=== PATIENT | male | born 1980 | race Caucasian/White ===

== ENCOUNTER 2017-11-28 13:03 | Inpatient (IN) | payer OTHER ==
[2017-11-28 16:11] VITALS: BMI 23.6
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
[2017-11-28] MEDS ORDERED: chlordiazePOXIDE HCL 25 MG CAPSULE PO PRN (21:09)
[2017-11-28] MEDS ORDERED: P-EPHED 60MG/TRIPROLIDI 2.5MG TABLET PO PRN (21:09)
[2017-11-28] MEDS ORDERED: MAG HYDROX/AL HYDROX/SIMETH 30 ML UNIT-DOSE CUP PO PRN (21:09)
[2017-11-28] MEDS ORDERED: guaiFENesin/D-METHORPHAN HB 10 ML UNIT-DOSE CUPS PO PRN (21:09)
[2017-11-28] MEDS ORDERED: chlordiazePOXIDE HCL 25 MG CAPSULE PO ONE (21:09)
[2017-11-28] MEDS ORDERED: MENTHOL/PHENOL 1 EACH UD MM PRN (21:09)
[2017-11-28] MEDS ORDERED: MAGNESIUM CITRATE 300 ML BOTTLE PO PRN (21:09)
[2017-11-28] MEDS ORDERED: MAGNESIUM HYDROX 2400MG/30ML ORAL SUSPENSION 30 ML CUP PO PRN (21:09)
[2017-11-28] MEDS ORDERED: LOPERAMIDE HCL 2 MG CAPSULE PO PRN (21:09)
[2017-11-28] MEDS ORDERED: cloNIDine HCL 0.1 MG TABLET PO PRN (21:18)
[2017-11-28] MEDS: THIAMINE HCL 100 MG TABLET (FP) PO SCH (21:59)
[2017-11-28] MEDS: IBUPROFEN 400 MG TABLET (FP) PO PRN (22:00)
[2017-11-28] MEDS: chlordiazePOXIDE HCL 25 MG CAPSULE PO SCH (22:00)
[2017-11-28] MEDS: GABAPENTIN 100 MG CAPSULE (FP) PO SCH (22:00)
[2017-11-28 22:54] LABS: URINE APPEARANCE CLEAR; URINE BILIRUBIN NEGATIVE (NEGATIVE); URINE BLOOD NEGATIVE (NEGATIVE); URINE COLOR AMBER; URINE GLUCOSE (UA) NEGATIVE (NEGATIVE); URINE KETONE TRACE (NEGATIVE); URINE LEUK ESTERASE NEGATIVE (NEGATIVE); URINE NITRITE NEGATIVE (NEGATIVE)
[2017-11-28 23:09] LABS: URINE PROTEIN 2+ (NEGATIVE)
[2017-11-28 23:12] LABS: URINE MUCUS RARE
[2017-11-29] MEDS: METHOCARBAMOL 500 MG TABLET PO PRN (05:16)
[2017-11-29] MEDS: chlordiazePOXIDE HCL 25 MG CAPSULE PO SCH ×4 (05:17→22:12)
[2017-11-29] MEDS: GABAPENTIN 100 MG CAPSULE (FP) PO SCH ×3 (07:21→22:11)
[2017-11-29 10:04] LABS: HEMATOCRIT 40.8 % (35.4-49); HEMOGLOBIN 13.4 GM/dL (11.7-16.9); MCH 32.5 pg (25.7-33.7); MEAN CELL VOLUME 98.7 fl (80-96); MEAN PLT VOLUME 7.8 fl (7.5-11.1); PLATELET COUNT 78 K/MM3 (134-434); RBC 4.13 M/mm3 (4.00-5.60); RDW 15.6 % (11.9-15.9); WHITE BLOOD COUNT 3.2 K/mm3 (4.0-10.0)
[2017-11-29] MEDS: PRENATAL VITAMINS W/ FOLIC ACID TABLET (FP) PO SCH (10:27)
[2017-11-29] MEDS: IBUPROFEN 400 MG TABLET (FP) PO PRN (10:29)
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
[2017-11-29] MEDS ORDERED: IBUPROFEN 600 MG TABLET (FP) PO PRN (10:59)
[2017-11-29 11:30] LABS: CHLORIDE 99 mmol/L (98-107); POTASSIUM 3.3 mmol/L (3.5-5.1); SODIUM 138 mmol/L (136-145)
[2017-11-29 11:37] LABS: ALBUMIN 3.6 g/dl (3.4-5.0); ALK PHOS 92 U/L (45-117); ANION GAP 11 (8-16); BILIRUBIN,TOTAL 1.8 mg/dL (0.2-1.0); BLOOD UREA NITROGEN 15 mg/dL (7-18); CO2 28 mmol/L (21-32); CREATININE 0.7 mg/dL (0.7-1.3); GLUCOSE,RANDOM 83 mg/dL (74-106); SGOT/AST 82 U/L (15-37); SGPT/ALT 83 U/L (12-78); TOT PROT 7.4 g/dl (6.4-8.2)
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
[2017-11-29] MEDS: THIAMINE HCL 100 MG TABLET (FP) PO SCH (22:11)
[2017-11-30] MEDS: chlordiazePOXIDE HCL 25 MG CAPSULE PO SCH ×3 (05:38→17:59)
[2017-11-30] MEDS: GABAPENTIN 100 MG CAPSULE (FP) PO SCH ×3 (05:38→22:09)
--- NOTE | 2017-11-30 07:54 | EKG ---
Test Reason : Blood Pressure : / mmHG Vent. Rate : 070 BPM Atrial Rate : 070 BPM P-R Int : 150 ms QRS Dur : 086 ms QT Int : 424 ms P-R-T Axes : 056 069 038 degrees QTc Int : 457 ms NORMAL SINUS RHYTHM WITH SINUS ARRHYTHMIA NORMAL ECG NO PREVIOUS ECGS AVAILABLE Confirmed by WILDA VIDAL MD ([id number]) on 11/30/2017 7:54:04 AM Referred By: Confirmed By:WILDA VIDAL MD
[2017-11-30] MEDS: PRENATAL VITAMINS W/ FOLIC ACID TABLET (FP) PO SCH (10:21)
[2017-11-30] MEDS: METHOCARBAMOL 500 MG TABLET PO PRN ×2 (10:21→18:03)
--- NOTE | 2017-11-30 12:15 | PN ---
[facility] CIWA - CIWA Score Nausea/Vomitin-No Nausea/No Vomiting Muscle Tremors: 4-Moderate,w/Arms Extend Anxiety: 4-Mod. Anxious/Guarded Agitation: 4-Moderately Restless Paroxysmal Sweats: 1-Minimal Palms Moist Orientation: 0-Oriented Tacttile Disturbances: 3-Moderate Itch/Numb/Burn Auditory Disturbances: 0-None Visual Disturbances: 0-None Headache: 0-None Present CIWA-Ar Total Score: 16 BHS Progress Note (SOAP) Subjective: ANXIETY,SWEATS,TREMORS,FATIGUE,"WOBBLY FEELING". Objective: 11/30/17 12:14 Vital Signs Temperature 96.0 F L 11/30/17 09:53 Pulse Rate 101 H 11/30/17 09:53 Respiratory Rate 20 11/30/17 09:53 Blood Pressure 128/81 11/30/17 09:53 O2 Sat by Pulse Oximetry (%) Laboratory Last Values WBC 3.2 K/mm3 (4.0-10.0) L 11/29/17 07:10 RBC 4.13 M/mm3 (4.00-5.60) 11/29/17 07:10 Hgb 13.4 GM/dL (11.7-16.9) 11/29/17 07:10 Hct 40.8 % (35.4-49) 11/29/17 07:10 MCV 98.7 fl (80-96) H 11/29/17 07:10 MCH 32.5 pg (25.7-33.7) 11/29/17 07:10 MCHC 33.0 g/dl (32.0-35.9) 11/29/17 07:10 RDW 15.6 % (11.9-15.9) 11/29/17 07:10 Plt Count 78 K/MM3 (134-434) L 11/29/17 07:10 MPV 7.8 fl (7.5-11.1) 11/29/17 07:10 Sodium 138 mmol/L (136-145) 11/29/17 07:10 Potassium 3.3 mmol/L (3.5-5.1) L 11/29/17 07:10 Chloride 99 mmol/L (98-107) 11/29/17 07:10 Carbon Dioxide 28 mmol/L (21-32) 11/29/17 07:10 Anion Gap 11 (8-16) 11/29/17 07:10 BUN 15 mg/dL (7-18) 11/29/17 07:10 Creatinine 0.7 mg/dL (0.7-1.3) 11/29/17 07:10 Creat Clearance w eGFR > 60 (>60) 11/29/17 07:10 Random Glucose 83 mg/dL (74-106) 11/29/17 07:10 Calcium 9.0 mg/dL (8.5-10.1) 11/29/17 07:10 Total Bilirubin 1.8 mg/dL (0.2-1.0) H 11/29/17 07:10 AST 82 U/L (15-37) H 11/29/17 07:10 ALT 83 U/L (12-78) H 11/29/17 07:10 Alkaline Phosphatase 92 U/L (45-117) 11/29/17 07:10 Total Protein 7.4 g/dl (6.4-8.2) 11/29/17 07:10 Albumin 3.6 g/dl (3.4-5.0) 11/29/17 07:10 Urine Color Daisy 11/28/17 22:40 Urine Appearance Clear 11/28/17 22:40 Urine pH 6.0 (5.0-8.0) 11/28/17 22:40 Ur Specific [place] 1.020 (1.001-1.035) 11/28/17 22:40 Urine Protein 2+ (NEGATIVE) H 11/28/17 22:40 Urine Glucose (UA) Negative (NEGATIVE) 11/28/17 22:40 Urine Ketones Trace (NEGATIVE) H 11/28/17 22:40 Urine Blood Negative (NEGATIVE) 11/28/17 22:40 Urine Nitrite Negative (NEGATIVE) 11/28/17 22:40 Urine Bilirubin Negative (NEGATIVE) 11/28/17 22:40 Urine Urobilinogen 2.0 mg/dL (0.2-1.0) 11/28/17 22:40 Ur Leukocyte Esterase Negative (NEGATIVE) 11/28/17 22:40 Urine WBC (Auto) 1 /hpf (3-5) 11/28/17 22:40 Urine RBC (Auto) <1 /hpf (0-3) 11/28/17 22:40 Urine Mucus Rare 11/28/17 22:40 RPR Titer Nonreactive (NONREACTIVE) 11/29/17 07:10 K+ =3.3 Assessment: 11/30/17 12:15 WITHDRAWAL SX HYPOKALEMIA Plan: CONTINUE DETOX
[2017-11-30] MEDS ORDERED: POTASSIUM CHLORIDE ORAL LIQUID 20 MEQ/15 ML PO ONE ×2 (12:33→15:20)
[2017-11-30] MEDS: THIAMINE HCL 100 MG TABLET (FP) PO SCH (22:08)
[2017-11-30] MEDS: chlordiazePOXIDE 5 MG CAPSULE PO SCH (22:08)
[2017-11-30] MEDS: POTASSIUM CHLORIDE ORAL LIQUID 20 MEQ/15 ML PO SCH (22:09)
[2017-12-01] MEDS: GABAPENTIN 100 MG CAPSULE (FP) PO SCH ×3 (05:31→22:13)
[2017-12-01] MEDS: chlordiazePOXIDE 5 MG CAPSULE PO SCH ×3 (05:31→17:30)
[2017-12-01] MEDS: PRENATAL VITAMINS W/ FOLIC ACID TABLET (FP) PO SCH (10:33)
[2017-12-01] MEDS: POTASSIUM CHLORIDE ORAL LIQUID 20 MEQ/15 ML PO SCH ×2 (10:33→22:13)
[2017-12-01] MEDS: METHOCARBAMOL 500 MG TABLET PO SCH ×3 (10:34→22:13)
--- NOTE | 2017-12-01 10:36 | PN ---
BHS Progress Note (SOAP) Subjective: ANXIETY,IRRITABILITY,TREMORS, SWEATS, RIB PAIN-S/P TRUAMA, DRY EYES. Objective: 12/01/17 10:35 Vital Signs Temperature 98.4 F 12/01/17 09:57 Pulse Rate 90 12/01/17 09:57 Respiratory Rate 18 12/01/17 09:57 Blood Pressure 108/75 12/01/17 09:57 O2 Sat by Pulse Oximetry (%) Laboratory Last Values WBC 3.2 K/mm3 (4.0-10.0) L 11/29/17 07:10 RBC 4.13 M/mm3 (4.00-5.60) 11/29/17 07:10 Hgb 13.4 GM/dL (11.7-16.9) 11/29/17 07:10 Hct 40.8 % (35.4-49) 11/29/17 07:10 MCV 98.7 fl (80-96) H 11/29/17 07:10 MCH 32.5 pg (25.7-33.7) 11/29/17 07:10 MCHC 33.0 g/dl (32.0-35.9) 11/29/17 07:10 RDW 15.6 % (11.9-15.9) 11/29/17 07:10 Plt Count 78 K/MM3 (134-434) L 11/29/17 07:10 MPV 7.8 fl (7.5-11.1) 11/29/17 07:10 Sodium 138 mmol/L (136-145) 11/29/17 07:10 Potassium 3.3 mmol/L (3.5-5.1) L 11/29/17 07:10 Chloride 99 mmol/L (98-107) 11/29/17 07:10 Carbon Dioxide 28 mmol/L (21-32) 11/29/17 07:10 Anion Gap 11 (8-16) 11/29/17 07:10 BUN 15 mg/dL (7-18) 11/29/17 07:10 Creatinine 0.7 mg/dL (0.7-1.3) 11/29/17 07:10 Creat Clearance w eGFR > 60 (>60) 11/29/17 07:10 Random Glucose 83 mg/dL (74-106) 11/29/17 07:10 Calcium 9.0 mg/dL (8.5-10.1) 11/29/17 07:10 Total Bilirubin 1.8 mg/dL (0.2-1.0) H 11/29/17 07:10 AST 82 U/L (15-37) H 11/29/17 07:10 ALT 83 U/L (12-78) H 11/29/17 07:10 Alkaline Phosphatase 92 U/L (45-117) 11/29/17 07:10 Total Protein 7.4 g/dl (6.4-8.2) 11/29/17 07:10 Albumin 3.6 g/dl (3.4-5.0) 11/29/17 07:10 Urine Color Daisy 11/28/17 22:40 Urine Appearance Clear 11/28/17 22:40 Urine pH 6.0 (5.0-8.0) 11/28/17 22:40 Ur Specific [place] 1.020 (1.001-1.035) 11/28/17 22:40 Urine Protein 2+ (NEGATIVE) H 11/28/17 22:40 Urine Glucose (UA) Negative (NEGATIVE) 11/28/17 22:40 Urine Ketones Trace (NEGATIVE) H 11/28/17 22:40 Urine Blood Negative (NEGATIVE) 11/28/17 22:40 Urine Nitrite Negative (NEGATIVE) 11/28/17 22:40 Urine Bilirubin Negative (NEGATIVE) 11/28/17 22:40 Urine Urobilinogen 2.0 mg/dL (0.2-1.0) 11/28/17 22:40 Ur Leukocyte Esterase Negative (NEGATIVE) 11/28/17 22:40 Urine WBC (Auto) 1 /hpf (3-5) 11/28/17 22:40 Urine RBC (Auto) <1 /hpf (0-3) 11/28/17 22:40 Urine Mucus Rare 11/28/17 22:40 RPR Titer Nonreactive (NONREACTIVE) 11/29/17 07:10 Assessment: 12/01/17 10:35 WITHDRAWAL SX Plan: CONTINUE DETOX VISINE EYE DROPS DIRECTED. ROBAXIN ORDERED ADDITIONAL LIBRIUM 50 MG PO AT 2:00 PM TODAY
[2017-12-01] MEDS: ACETAMINOPHEN 325 MG TABLET (FP) PO PRN (10:39)
[2017-12-01] MEDS ORDERED: chlordiazePOXIDE HCL 25 MG CAPSULE PO ONE (14:00)
[2017-12-01] MEDS: TETRAHYDROZOLINE HCL 1 DROP DROPS OU SCH ×2 (16:14→22:10)
[2017-12-01] MEDS: THIAMINE HCL 100 MG TABLET (FP) PO SCH (22:13)
[2017-12-01] MEDS: chlordiazePOXIDE HCL 10 MG CAPSULE PO SCH (22:13)
[2017-12-02] MEDS: METHOCARBAMOL 500 MG TABLET PO SCH (05:21)
[2017-12-02] MEDS: GABAPENTIN 100 MG CAPSULE (FP) PO SCH (05:21)
[2017-12-02] MEDS: chlordiazePOXIDE HCL 10 MG CAPSULE PO SCH ×2 (05:21→10:23)
[2017-12-02] MEDS: TETRAHYDROZOLINE HCL 1 DROP DROPS OU SCH (05:36)
[2017-12-02 09:50] VITALS: BP 131/83; PULSE 94; TEMP 96.3
--- NOTE | 2017-12-02 10:21 | DS ---
[facility] Detox Discharge Summary Admission Date: 11/28/17 Discharge Date: 12/02/17 - History Present History: Alcohol Dependence Additional Comments: DETOX COMPLETED.ALERT O X 3. NAD. Pertinent Past History: BACK PAIN - Physical Exam Results Vital Signs: Vital Signs Temperature 96.3 F L 12/02/17 09:50 Pulse Rate 94 H 12/02/17 09:50 Respiratory Rate 20 12/02/17 09:50 Blood Pressure 131/83 12/02/17 09:50 O2 Sat by Pulse Oximetry (%) Pertinent Admission Physical Exam Findings: WITHDRAWAL SX Laboratory Last Values WBC 3.2 K/mm3 (4.0-10.0) L 11/29/17 07:10 RBC 4.13 M/mm3 (4.00-5.60) 11/29/17 07:10 Hgb 13.4 GM/dL (11.7-16.9) 11/29/17 07:10 Hct 40.8 % (35.4-49) 11/29/17 07:10 MCV 98.7 fl (80-96) H 11/29/17 07:10 MCH 32.5 pg (25.7-33.7) 11/29/17 07:10 MCHC 33.0 g/dl (32.0-35.9) 11/29/17 07:10 RDW 15.6 % (11.9-15.9) 11/29/17 07:10 Plt Count 78 K/MM3 (134-434) L 11/29/17 07:10 MPV 7.8 fl (7.5-11.1) 11/29/17 07:10 Sodium 138 mmol/L (136-145) 11/29/17 07:10 Potassium 3.3 mmol/L (3.5-5.1) L 11/29/17 07:10 Chloride 99 mmol/L (98-107) 11/29/17 07:10 Carbon Dioxide 28 mmol/L (21-32) 11/29/17 07:10 Anion Gap 11 (8-16) 11/29/17 07:10 BUN 15 mg/dL (7-18) 11/29/17 07:10 Creatinine 0.7 mg/dL (0.7-1.3) 11/29/17 07:10 Creat Clearance w eGFR > 60 (>60) 11/29/17 07:10 Random Glucose 83 mg/dL (74-106) 11/29/17 07:10 Calcium 9.0 mg/dL (8.5-10.1) 11/29/17 07:10 Total Bilirubin 1.8 mg/dL (0.2-1.0) H 11/29/17 07:10 AST 82 U/L (15-37) H 11/29/17 07:10 ALT 83 U/L (12-78) H 11/29/17 07:10 Alkaline Phosphatase 92 U/L (45-117) 11/29/17 07:10 Total Protein 7.4 g/dl (6.4-8.2) 11/29/17 07:10 Albumin 3.6 g/dl (3.4-5.0) 11/29/17 07:10 Urine Color Daisy 11/28/17 22:40 Urine Appearance Clear 11/28/17 22:40 Urine pH 6.0 (5.0-8.0) 11/28/17 22:40 Ur Specific [place] 1.020 (1.001-1.035) 11/28/17 22:40 Urine Protein 2+ (NEGATIVE) H 11/28/17 22:40 Urine Glucose (UA) Negative (NEGATIVE) 11/28/17 22:40 Urine Ketones Trace (NEGATIVE) H 11/28/17 22:40 Urine Blood Negative (NEGATIVE) 11/28/17 22:40 Urine Nitrite Negative (NEGATIVE) 11/28/17 22:40 Urine Bilirubin Negative (NEGATIVE) 11/28/17 22:40 Urine Urobilinogen 2.0 mg/dL (0.2-1.0) 11/28/17 22:40 Ur Leukocyte Esterase Negative (NEGATIVE) 11/28/17 22:40 Urine WBC (Auto) 1 /hpf (3-5) 11/28/17 22:40 Urine RBC (Auto) <1 /hpf (0-3) 11/28/17 22:40 Urine Mucus Rare 11/28/17 22:40 RPR Titer Nonreactive (NONREACTIVE) 11/29/17 07:10 - Treatment Hospital Course: Detox Protocol Followed, Detoxed Safely, Responded well, Discharged Condition Good - Medication Discharge Medications: Ambulatory Orders NK [No Known Home Medication] 11/28/17 - Diagnosis (1) Alcohol dependence with uncomplicated withdrawal Current Visit: Yes Status: Acute (2) Multiple bruises Current Visit: Yes Status: Acute (3) Back pain Current Visit: Yes Status: Acute Qualifiers: Back pain location: low back pain Chronicity: acute Back pain laterality : unspecified (4) Hypokalemia Current Visit: Yes Status: Acute - AMA Did Patient Leave Against Medical Advice: No
[2017-12-02] MEDS: PRENATAL VITAMINS W/ FOLIC ACID TABLET (FP) PO SCH (10:23)
[2017-12-02] MEDS: POTASSIUM CHLORIDE ORAL LIQUID 20 MEQ/15 ML PO SCH (10:23)
[2017-12-02] MEDS: ACETAMINOPHEN 325 MG TABLET (FP) PO PRN (10:25)
== END 2017-12-02 13:29 | disposition home or self-care (01) | DRG 775 ==
LOC: YASAS 13:03 → Y3N 17:59
PROVIDERS: ADMIT Internal Medicine; ATTEND Internal Medicine
PROC: HZ2ZZZZ Detoxification Services for Substance Abuse Treatment (ICD-10-PCS; principal; 2017-11-28)
DX: F10.230 Alcohol dependence with withdrawal, uncomplicated (principal); F10.24 Alcohol dependence with alcohol-induced mood disorder; F34.1 Dysthymic disorder; E87.6 Hypokalemia; G40.909 Epilepsy, unspecified, not intractable, without status epilepticus; T07.XXXD Unspecified multiple injuries, subsequent encounter; Y04.0XXD Assault by unarmed brawl or fight, subsequent encounter; Z87.891 Personal history of nicotine dependence
CPT/HCPCS: 36415; 80053; 81003; 81015; 85027; 86593; 93005; 93010